=== PATIENT | female | born 1945 | race Caucasian/White ===

== ENCOUNTER 2021-04-07 19:23 | Inpatient (IN) ==
[2021-04-07] MEDS ORDERED: 0.9 % Sodium Chloride 500 ML IV ONE ×2 (20:07→21:29)
[2021-04-07] MEDS ORDERED: Ondansetron 4 MG/2 ML VIAL IVP ONE (20:09)
[2021-04-07 20:15] LABS: Basophils # 0.1 K/mcL (0.0-0.2); Basophils % 0.4 %; Eosinophils # 0.2 K/mcL (0.0-0.6); Eosinophils % 1.1 %; Hematocrit 34.2 % (35.3-44.9); Hemoglobin 10.4 g/dL (11.5-15.4); Immature Granulocytes % 0.5 % (0-4); Lymphocytes # 1.9 K/mcL (0.6-4.6); Lymphocytes % 10.6 %; Mean Corpuscular HGB Conc 30.4 g/dL (31.6-35.5); Mean Corpuscular Hemoglobin 27.6 pg (28.0-33.3); Mean Corpuscular Volume 90.7 fL (83.0-100.0); Mean Platelet Volume 8.3 fL (9.4-12.4); Monocytes % 5.6 %; Neutrophils # 14.3 K/mcL (1.6-8.9); Platelet Count 392 K/mcL (140-400); Red Blood Count 3.77 M/mcL (3.82-4.97); Red Cell Distribution Width 14.2 % (11.5-14.5); Segmented Neutrophils % 81.8 %; White Blood Count 17.5 K/mcL (4.3-11.1)
[2021-04-07 20:24] LABS: INR 1.1; Prothrombin Time 12.1 Seconds (9.4-12.1)
[2021-04-07 20:27] LABS: Albumin 4.1 g/dL (3.5-5.7); Albumin/Globulin Ratio 0.9 (1.1-2.2); Bilirubin,Total 0.3 mg/dL (0.3-1.0); Globulin 4.4 g/dL (2.4-3.5); Potassium 3.7 mEq/L (3.5-5.1); Total Protein 8.5 g/dL (6.4-8.9)
[2021-04-07] MEDS ORDERED: MetroNIDAZOLE 500 MG/100 ML 500 MG/100 ML BAG IVPB ONE (23:03)
[2021-04-07] MEDS ORDERED: 0.9 % Sodium Chloride 1,000 ML IV ONE (23:04)
[2021-04-07 23:16] LABS: Bilirubin,Urine Negative (Negative); Blood,Urine Trace (Negative); Clarity,Urine Clear (Clear); Color,Urine Colorless (Yellow); Glucose,Urine (UA) Normal (Normal); Ketones,Urine Negative (Negative); Leukocyte Esterase,Urine Negative (Negative); Mucus,Urine Few per lpf (None-Few); Nitrite,Urine Negative (Negative); Protein,Urine 30 mg/dL (Neg-Trace); RBC,Urine 0-3 per hpf (0-3); Specific Gravity,Urine 1.011 (1.010-1.025); Squamous Epithelial Cell,Urine Few per hpf (None-Few); Urobilinogen,Urine Normal (Normal)
[2021-04-07 23:21] LABS: Albumin 3.6 g/dL (3.5-5.7); Bilirubin,Indirect 0.3 mg/dL (0.0-1.0); Bilirubin,Total 0.3 mg/dL (0.3-1.0); Globulin 3.6 g/dL (2.4-3.5); Total Protein 7.2 g/dL (6.4-8.9)
[2021-04-07] MEDS: 0.9 % Sodium Chloride 1,000 ML IV SCH ×2 (23:25→23:26)
[2021-04-08] MEDS ORDERED: Melatonin 3 MG TABLET PO PRN (00:02)
[2021-04-08] MEDS ORDERED: Naloxone 0.4 MG/ML INJ IVP PRN (00:02)
[2021-04-08] MEDS ORDERED: D5% in Water 1,000 ML IVC PRN (00:07)
[2021-04-08] MEDS ORDERED: Dextrose Gel 15 GM/37.5 ML TUBE PO PRN ×2 (00:07)
[2021-04-08] MEDS ORDERED: *HR* Dextrose 50 % in Water (Syg) 50 ML SYRINGE IVP PRN (00:07)
[2021-04-08] MEDS ORDERED: 0.9 % Sodium Chloride 1,000 ML ONE (01:57)
[2021-04-08] MEDS: Nicotine 14 MG PATCH.TD24 TD SCH (01:59)
[2021-04-08 05:41] LABS: Basophils % 0.4 %; Eosinophils # 0.2 K/mcL (0.0-0.6); Eosinophils % 2.1 %; Hematocrit 27.7 % (35.3-44.9); Immature Granulocytes % 0.4 % (0-4); Lymphocytes # 1.7 K/mcL (0.6-4.6); Lymphocytes % 15.2 %; Mean Corpuscular HGB Conc 31.4 g/dL (31.6-35.5); Mean Corpuscular Hemoglobin 28.1 pg (28.0-33.3); Mean Corpuscular Volume 89.4 fL (83.0-100.0); Mean Platelet Volume 8.5 fL (9.4-12.4); Monocytes # 0.8 K/mcL (0.0-1.3); Monocytes % 7.2 %; Neutrophils # 8.4 K/mcL (1.6-8.9); Platelet Count 306 K/mcL (140-400); Red Cell Distribution Width 14.1 % (11.5-14.5); Segmented Neutrophils % 74.7 %; White Blood Count 11.2 K/mcL (4.3-11.1)
[2021-04-08 05:51] LABS: Hemoglobin 8.7 g/dL (11.5-15.4)
[2021-04-08 06:02] LABS: Calcium 9.1 mg/dL (8.6-10.3); Magnesium 1.8 mg/dL (1.6-2.6); Potassium 3.7 mEq/L (3.5-5.1)
[2021-04-08] MEDS: MetroNIDAZOLE 500 MG/100 ML 500 MG/100 ML BAG IVPB SCH ×2 (08:37→16:28)
[2021-04-08] MEDS: Insulin LISPRO 300 UNITS/3 ML VIAL SUBQ SCH ×4 (08:46→21:02)
[2021-04-08 11:57] LABS: Hematocrit 28.9 % (35.3-44.9)
[2021-04-08] MEDS: traZODone 50 MG TABLET PO SCH (20:54)
[2021-04-08] MEDS: Magnesium Oxide 400 MG TABLET PO SCH (20:54)
[2021-04-08] MEDS: Ketorolac OPTH Soln 5 ML BOTTLE LEFT EYE SCH (20:55)
[2021-04-08] MEDS: PrednisoLONE Acetate 1% Opth 5 ML BOTTLE RIGHT EYE SCH (20:55)
[2021-04-08] MEDS: PrednisoLONE Acetate 1% Opth 5 ML BOTTLE LEFT EYE SCH (20:55)
[2021-04-08] MEDS: Ketorolac OPTH Soln 5 ML BOTTLE RIGHT EYE SCH (20:56)
[2021-04-08] MEDS: (Colestipol Hcl [Colestid] 1 GM Tablet) PO SCH (20:59)
[2021-04-09] MEDS: MetroNIDAZOLE 500 MG/100 ML 500 MG/100 ML BAG IVPB SCH ×3 (00:26→19:39)
[2021-04-09 02:08] LABS: Basophils % 0.3 %; Eosinophils # 0.3 K/mcL (0.0-0.6); Eosinophils % 3.4 %; Hematocrit 28.2 % (35.3-44.9); Hemoglobin 8.9 g/dL (11.5-15.4); Immature Granulocytes % 0.3 % (0-4); Lymphocytes # 1.5 K/mcL (0.6-4.6); Lymphocytes % 16.9 %; Mean Corpuscular HGB Conc 31.6 g/dL (31.6-35.5); Mean Corpuscular Volume 88.7 fL (83.0-100.0); Mean Platelet Volume 8.5 fL (9.4-12.4); Monocytes # 0.9 K/mcL (0.0-1.3); Monocytes % 10.2 %; Neutrophils # 6.1 K/mcL (1.6-8.9); Platelet Count 311 K/mcL (140-400); Red Blood Count 3.18 M/mcL (3.82-4.97); Red Cell Distribution Width 13.8 % (11.5-14.5); Segmented Neutrophils % 68.9 %; White Blood Count 8.9 K/mcL (4.3-11.1)
[2021-04-09 02:28] LABS: Potassium 3.6 mEq/L (3.5-5.1)
[2021-04-09] MEDS: Nicotine 14 MG PATCH.TD24 TD SCH (02:52)
[2021-04-09] MEDS: Iron Polysaccharide Complex 150 MG CAPSULE PO SCH (07:36)
[2021-04-09] MEDS: Magnesium Oxide 400 MG TABLET PO SCH ×3 (07:37→23:20)
[2021-04-09] MEDS: calcitrioL 0.25 MCG CAPSULE PO SCH (07:37)
[2021-04-09] MEDS: Ascorbic Acid 500 MG TABLET PO SCH (07:37)
[2021-04-09] MEDS: (Colestipol Hcl [Colestid] 1 GM Tablet) PO SCH (07:37)
[2021-04-09] MEDS: Insulin LISPRO 300 UNITS/3 ML VIAL SUBQ SCH ×4 (08:36→21:07)
[2021-04-09] MEDS: Ketorolac OPTH Soln 5 ML BOTTLE RIGHT EYE SCH ×2 (08:37→21:11)
[2021-04-09] MEDS: Ketorolac OPTH Soln 5 ML BOTTLE LEFT EYE SCH ×3 (08:37→21:10)
[2021-04-09] MEDS: PrednisoLONE Acetate 1% Opth 5 ML BOTTLE LEFT EYE SCH ×3 (08:38→21:11)
[2021-04-09] MEDS: PrednisoLONE Acetate 1% Opth 5 ML BOTTLE RIGHT EYE SCH ×2 (08:38→21:12)
[2021-04-09] MEDS ORDERED: Lidocaine -MPF 2% 5 ML VIAL ONE (15:05)
[2021-04-09] MEDS ORDERED: *HR* Propofol 200 MG/20 ML VIAL IVP ONE ×3 (15:05→16:21)
[2021-04-09] MEDS: traZODone 50 MG TABLET PO SCH ×2 (21:13→23:18)
[2021-04-10] MEDS: MetroNIDAZOLE 500 MG/100 ML 500 MG/100 ML BAG IVPB SCH ×2 (01:04→10:31)
[2021-04-10] MEDS: Nicotine 14 MG PATCH.TD24 TD SCH (02:37)
[2021-04-10 04:04] LABS: Hemoglobin 9.1 g/dL (11.5-15.4); Mean Corpuscular HGB Conc 31.4 g/dL (31.6-35.5); Mean Corpuscular Hemoglobin 27.7 pg (28.0-33.3); Mean Corpuscular Volume 88.1 fL (83.0-100.0); Mean Platelet Volume 8.6 fL (9.4-12.4); Platelet Count 343 K/mcL (140-400); Red Blood Count 3.29 M/mcL (3.82-4.97); White Blood Count 14.4 K/mcL (4.3-11.1)
[2021-04-10 04:09] VITALS: O2SAT 95
[2021-04-10] MEDS: Insulin LISPRO 300 UNITS/3 ML VIAL SUBQ SCH ×2 (07:30→11:48)
[2021-04-10] MEDS: Iron Polysaccharide Complex 150 MG CAPSULE PO SCH (10:12)
[2021-04-10] MEDS: Ascorbic Acid 500 MG TABLET PO SCH (10:12)
[2021-04-10] MEDS: Magnesium Oxide 400 MG TABLET PO SCH (10:14)
[2021-04-10] MEDS: calcitrioL 0.25 MCG CAPSULE PO SCH (10:16)
[2021-04-10] MEDS: Ketorolac OPTH Soln 5 ML BOTTLE RIGHT EYE SCH (10:22)
[2021-04-10] MEDS: Ketorolac OPTH Soln 5 ML BOTTLE LEFT EYE SCH (10:22)
[2021-04-10] MEDS: PrednisoLONE Acetate 1% Opth 5 ML BOTTLE LEFT EYE SCH (10:27)
[2021-04-10] MEDS: PrednisoLONE Acetate 1% Opth 5 ML BOTTLE RIGHT EYE SCH (10:28)
[2021-04-10 10:57] VITALS: BP 122/72; PULSE 91; TEMP 97.4
== END 2021-04-10 13:36 | disposition home or self-care (01) | DRG 392 ==
LOC: EMEROOARM 19:23 → 3ANU 19:23 → SUATTDRO 04-08 00:03 → 3ANU 04-08 00:35
PROVIDERS: ADMIT Student in an Organized Health Care Education/Training Program; ATTEND Internal Medicine
PROC: ENDOEBX (2021-04-09 15:10)
PROC: ENDOCBX (2021-04-09 15:10)